=== PATIENT | female | born 1940 | race Caucasian/White ===

== ENCOUNTER → 2021-04-28 14:13 | Outpatient (CLI) | payer OTHER, SELFPAY ==
[2021-04-28 16:59] LABS: INR 3.7 (0.9-1.3); Prothrombin Time 42.5 SECONDS (10.1-12.7)
== END ==
PROVIDERS: PCP Family Medicine; Referring Provider Internal Medicine Clinical Cardiac Electrophysiology; Visit Provider Internal Medicine Clinical Cardiac Electrophysiology
DX: I48.0 Paroxysmal atrial fibrillation (principal)
CPT/HCPCS: 36415; 85610